=== PATIENT | female | born 1960 | race African-American/Black ===

== ENCOUNTER 2018-03-06 05:52 | Inpatient (IN) | payer OTHER ==
[~2018-03-06] VITALS: Ht 165.1 cm; Wt 97.1 kg
[2018-03-06] VITALS (18 sets, daily range): BP systolic 122–146; BP diastolic 62–81
[2018-03-06] MEDS ORDERED: Zemuron 50mg/5ml Inj IV ONE (06:08)
[2018-03-06] MEDS ORDERED: Dexamethasone 4mg/ml vial ONE (06:36)
[2018-03-06] MEDS ORDERED: Sodium Chloride 10ml vial INJ ONE (06:36)
[2018-03-06] MEDS ORDERED: Lidocaine 1% MPF 10mg/ml 5ml ONE (06:36)
[2018-03-06] MEDS ORDERED: NORCO 5-325 TA1 EACH ORAL (06:37)
[2018-03-06] MEDS ORDERED: ADVIL200 M2 ORAL (06:37)
[2018-03-06] MEDS ORDERED: Lidocaine 1% Plain 30 ml INJ ONE ×2 (06:46→09:20)
[2018-03-06] MEDS ORDERED: ceFAZolin sod 2 GM in D5W 110 ML IVPB ONE (06:59)
[2018-03-06] MEDS ORDERED: Propofol 1,000mg/ 100ml btl IV ONE (07:00)
[2018-03-06] MEDS ORDERED: NS Irrig 1000ml ONE (07:00)
[2018-03-06] MEDS ORDERED: Sterile Water Irrig 1000ml IRRIG ONE (07:00)
[2018-03-06] MEDS ORDERED: LR 1000ml ONE (07:00)
[2018-03-06] MEDS ORDERED: Gelfoam Size TOPIC ONE ×2 (07:06→08:33)
[2018-03-06] MEDS ORDERED: Thrombin 5000 units TOPIC ONE ×3 (07:06→08:32)
[2018-03-06] MEDS ORDERED: Vancomycin 1gm inj IVPB ONE (07:06)
[2018-03-06] MEDS ORDERED: Bacitracin 50000 Units Vial ONE (07:07)
[2018-03-06] MEDS ORDERED: Thrombin 5000 units spray kit TOPIC ONE (07:09)
--- NOTE | 2018-03-06 07:18 | Anethesia Preoperative Eval ---
Anesthesia Pre-op PMH/ROS General Date of Evaluation: Mar 06, 2018 Time of Evaluation: 07:01 Anesthesiologist: Saman ASA Score: ASA 2 Mallampati Score Class I : Soft palate, uvula, fauces, pillars visible Class II: Soft palate, uvula, fauces visible Class III: Soft palate, base of uvula visible Class IV: Only hard plate visible Mallampati Classification: Class II Surgeon: Cheryl Diagnosis: Neck Pain Surgical Procedure: C5-6 ADR, C6-7 ACDF Anesthesia History: none Family History: no anesthesia problems Allergies: Coded Allergies: No Known Allergies (Unverified , 03/06/18) Medications: see eMAR Past Medical History Cardiovascular: Reports: HTN Other: obesity - BMI 37 PSxH Narrative: C/S Anesthesia Pre-op Phys. Exam Physician Exam Last Vital Signs Date Time Temp Pulse Resp B/P (MAP) Pulse Ox O2 Delivery O2 Flow Rate FiO2 03/06/18 06:35 97.3 60 18 128/66 (86) 100 97.3 03/06/18 06:19 Room Air Constitutional: NAD Neurologic: CN 2-12 intact Cardiovascular: RRR Respiratory: CTA Gastrointestinal: S/NT/ND Airway Exam Mallampati Score: Class II MO: limited ROM: limited Teeth: intact Anesthesia Pre-op A/P Risk Assessment & Plan Assessment: ASA 3 Plan: GA, SED, GlideScope Status Change Before Surgery: No Pre-Antibiotics Dru Grams Ancef IV Given Within 1 Hr of Incision: Yes Time Given: 07:16 Santosh Davison MD Mar 06, 2018 07:18
--- NOTE | 2018-03-06 07:20 | Pre-Procedure Note/Attestation ---
Pre-Procedure Note/Attestation Complete Prior to Procedure Planned Procedure: not applicable Procedure Narrative: C56 Artificial disc replacement and C67 anterior cervical discectomy and fusion Indications for Procedure Pre-Operative Diagnosis: Herniation c56 and 67 and radiculopathy Attestation I attest that I discussed the nature of the procedure; its benefits; risks and complications; and alternatives (and the risks and benefits of such alternatives ), prior to the procedure, with the patient (or the patient's legal patient portal representative). I attest that, if there was a reasonable possibility of needing a blood transfusion, the patient (or the patient's legal patient portal representative) was given the [facility] standardized written summary, pursuant to the [employer] Juan Ramon Blood Safety Act ([place] Health and Safety Code # 1645, as amended). I attest that I re-evaluated the patient just prior to the surgery and that there has been no change in the patient's H&P, except as documented below: Tony Luna MD Mar 06, 2018 07:20
--- NOTE | 2018-03-06 07:21 | Brief Operative Note ---
Immediate Post Operative Note Operative Note Chief Complaint: Neck pain and radiculpathy Pre-op Diagnosis: Herniation c56 and 67 and radiculopathy Procedure: C56 Artificial disc replacement and C67 anterior cervical discectomy and fusion Post-op Diagnosis: same as pre-op Findings: consistent w/pre-op dx studies Surgeon: Cheryl Buncher Hand: Halie Anesthesiologist: Saman Anesthesia: general Specimen: none Complications: none Condition: stable Fluids: IVF Estimated Blood Loss: minimal Drains: none Implant(s) used?: Yes - Prodisc sz 5, nuvasive interlock c osteocell 1cc Tony Luna MD Mar 06, 2018 07:21
[2018-03-06] MEDS ORDERED: fentaNYL 100 mcg/2 mL IV PRN (08:01)
[2018-03-06] MEDS ORDERED: Norco 5mg/325mg tab ORAL PRN ×2 (08:01→12:19)
[2018-03-06] MEDS ORDERED: Hydromorphone 0.5mg/0.5ml inj IVP PRN (08:01)
[2018-03-06] MEDS ORDERED: Ketorolac 30mg Inj IV PRN ×2 (08:02→08:03)
[2018-03-06] MEDS ORDERED: HYDROcodone/Acetamin 7.5/325 tab ORAL PRN ×3 (08:02→12:19)
[2018-03-06] MEDS ORDERED: oxyCODONE HCL/Acetaminophen 5/325mg ORAL PRN (08:03)
[2018-03-06] MEDS ORDERED: LORazepam Inj 2mg/ml 1ml IV PRN (08:03)
[2018-03-06] MEDS ORDERED: Midazolam 2mg/2ml Inj IVP PRN (08:03)
[2018-03-06] MEDS ORDERED: Metoclopramide 10mg/2ml Inj IVP PRN ×3 (08:04→12:32)
[2018-03-06] MEDS ORDERED: Labetalol 5mg/ml 20ml vial IV PRN (08:06)
[2018-03-06] MEDS ORDERED: fentaNYL 100 mcg/2 mL IV ONE (08:06)
[2018-03-06] MEDS ORDERED: LR 1000ml 1,000 ML IVLG SCH (08:07)
[2018-03-06] MEDS ORDERED: DiphenhydrAMINE 50mg/ml Inj IVP PRN (08:07)
[2018-03-06] MEDS ORDERED: Atropine Sulfate 0.4mg/ml inj IVP PRN (08:07)
--- NOTE | 2018-03-06 08:07 | Immediate Post-Op Evaluation ---
Immediate Post-Op Evalulation Immediate Post-Op Evalulation Procedure: C5-6 ADR, C6-7 ACDF Date of Evaluation: Mar 06, 2018 Time of Evaluation: 10:22 IV Fluids: 1000 LR Blood Products: 0 Estimated Blood Loss: 25 Urinary Output: 700 Blood Pressure Systolic: 122 Blood Pressure Diastolic: 62 Pulse Rate: 74 Respiratory Rate: 16 O2 Sat by Pulse Oximetry: 96 Temperature (Fahrenheit): 97.9 Pain Score (1-10): 3 Nausea: No Vomiting: No Complications 0 Hydration Status: adequate Dru Grams Ancef IV Given Within 1 Hr of Incision: Yes Time Given: 07:16 Santosh Davison MD Mar 06, 2018 08:07
[2018-03-06] MEDS ORDERED: Acetaminophen (Non formulary) 100 ML IV ONE (08:08)
[2018-03-06] MEDS ORDERED: Meperidine 50mg/ml Inj(FOR RIGORS ONLY) IVP PRN (08:08)
[2018-03-06] MEDS ORDERED: NS Irrig 1000ml IRRIG ONE (08:42)
[2018-03-06] MEDS ORDERED: Glycopyrrolate 0.2mg/ml 1ml Vial ONE (09:32)
[2018-03-06] MEDS ORDERED: Neostigmine 1mg/ml 10ml Inj ONE (09:32)
[2018-03-06] MEDS ORDERED: Milk of Magnesia 30ml Ud ORAL PRN (12:15)
[2018-03-06] MEDS ORDERED: Chloraseptic Spray 20mL Bottle ORAL PRN (12:16)
[2018-03-06] MEDS ORDERED: Naloxone 0.4mg/ml Inj IVP PRN (12:17)
[2018-03-06] MEDS ORDERED: HYDROmorphone 1mg/ml Carpuject IVP PRN (12:20)
[2018-03-06] MEDS ORDERED: Morphine Sulfate 4mg/ml Inj (IV USE ONLY) IV PRN (12:32)
[2018-03-06] MEDS ORDERED: Morphine Sulfate 2mg/ml Inj IV PRN (12:33)
[2018-03-06] MEDS: Dexamethasone 4mg/ml vial IVP SCH ×3 (12:45→23:03)
[2018-03-06] MEDS: Morphine Sulfate 4mg/ml Inj (IV USE ONLY) IV PRN ×3 (12:46→21:29)
[2018-03-06] MEDS: NS w/KCl 20mEq 1,000 ML IV SCH ×2 (13:24→22:47)
--- NOTE | 2018-03-06 15:11 | Diagnostic Imaging Report ---
Indication: Neck Pain Findings: 3 fluoroscopic views of the cervical spine were obtained. Images showing localization followed by discectomy this replacement at C5-6 and anterior fusion at C6-7. IMPRESSION: Intraoperative imaging
[2018-03-06] MEDS: ceFAZolin sod 1 GM in D5W 55 ML IV SCH ×2 (15:15→22:48)
--- NOTE | 2018-03-06 17:09 | General Progress Note ---
Assessment/Plan Assessment/Plan C56 Artificial disc replacement and C67 anterior cervical discectomy and fusion Herniation c56 and 67 and radiculopathy cervical disc disease PLAN 1. incentive spirometry 2. SCD 3. PT evaluation and therapy 4. Hydration 5. Pain management 6. discharge once stable with outpatient follow up Subjective Allergies: Coded Allergies: No Known Allergies (Unverified , 03/06/18) Subjective post op stable Objective Last 24 Hour Vital Signs Date Time Temp Pulse Resp B/P (MAP) Pulse Ox O2 Delivery O2 Flow Rate FiO2 03/06/18 16:00 97.7 72 18 134/81 (98) 96 97.7 03/06/18 14:15 98.0 73 18 133/75 (94) 96 98.0 03/06/18 13:15 98.0 73 18 133/76 (95) 96 98.0 03/06/18 12:15 97.8 77 18 132/70 (90) 93 97.8 03/06/18 11:45 97.4 74 18 129/69 (89) 97 97.4 03/06/18 11:25 98.0 74 19 130/74 95 Nasal Cannula 4 98.0 03/06/18 11:10 71 20 129/63 98 Nasal Cannula 4 03/06/18 11:10 97.8 03/06/18 11:10 97.8 03/06/18 11:05 74 17 141/70 99 Nasal Cannula 4 03/06/18 10:55 74 17 136/75 94 Simple Mask 8 03/06/18 10:52 97.9 03/06/18 10:50 72 17 136/74 96 Simple Mask 8 03/06/18 10:35 78 18 146/73 93 Simple Mask 8 03/06/18 10:34 97.9 03/06/18 10:30 70 15 132/64 98 Simple Mask 8 03/06/18 10:20 75 17 133/67 96 Simple Mask 10 03/06/18 10:15 69 14 145/70 92 Simple Mask 10 03/06/18 10:11 97.9 72 16 122/62 92 Simple Mask 10 97.9 03/06/18 10:11 208.2 74 16 96 03/06/18 06:35 97.3 60 18 128/66 (86) 100 97.3 03/06/18 06:19 Room Air Intake and Output 03/05/18 03/06/18 19:00 07:00 # Voids 1 Height (Feet): 5 Height (Inches): 5.00 Weight (Pounds): 214 Objective WDWN NAD clear breath sounds bilaterally without rhonchi or wheeze [id number] without MRG NABS nontender no HSM no CCE nonfocal Gurinder Goodwin MD Mar 06, 2018 17:09
[2018-03-06] MEDS: Docusate 100mg cap ORAL SCH ×2 (17:49→18:00)
--- NOTE | 2018-03-06 23:00 | Operative Note - Dictated ---
DATE OF OPERATION: 03/06/2018 SURGEON: Tony Luna MD, Orthopedic Spine Surgeon. SKY CAP: Sam Ambrose M.D. ANESTHESIOLOGIST: Santosh Davison M.D. PREOPERATIVE DIAGNOSES: 1. Intractable neck pain. 2. Radiculopathy. 3. Herniation, C5-C6 and C6-C7. 4. Neural foraminal stenosis, C5-C6 and C6-C7. 5. Stenosis. POSTOPERATIVE DIAGNOSES: 1. Intractable neck pain. 2. Radiculopathy. 3. Herniation, C5-C6 and C6-C7. 4. Neural foraminal stenosis, C5-C6 and C6-C7. 5. Stenosis. PROCEDURE PERFORMED: 1. Anterior cervical discectomy and artificial disc replacement of C5-C6 using a Synthes ProDisc C size 5 height. 2. Anterior cervical discectomy and fusion of C6-C7 using NuVasive Interlock C size 6 PEEK cage and three 13 mm screws Osteocel allograft bone and local autograft. 3. Use of intraoperative microscope. 4. Motor-evoked potential monitoring. 5. Somatosensory-evoked potential monitoring. 6. Supervision and interpretation of fluoroscopy. COMPLICATIONS: None. ANESTHESIA: General. ESTIMATED BLOOD LOSS: Less than 100 mL. INDICATIONS FOR SURGERY: This patient is a 57-year-old female who has history of diagnoses as listed above. As of result of this, the patient sustained intractable neck pain, radiculopathy, herniation of C5-C6 and C6-C7, neural foraminal stenosis of C5-C6 and C6-C7, and stenosis. We tried a course of conservative management, but despite this course, there was still a significant component of persistent, recalcitrant neck pain and arm pain. The MRI demonstrated significant neural foraminal compromise secondary to disc herniations at C5-C6 and C6-C7. We had a long discussion with Reyna regarding the risks and benefits of surgery. Our discussion included but was not limited to nonoperative management, chiropractic management, another epidural steroid injection as well as definitive management in the form of surgery. We recommended an artificial disc replacement of cervical C5-C6 and anterior cervical discectomy and fusion of cervical C6-C7 as final definitive management. We reviewed the risks and benefits of surgery with the patient. Our discussion included a comprehensive review of the clinical issues and the nature of the clinical decision. We reviewed the alternatives, including doing nothing. The patient elected to proceed accordingly with an artificial disc replacement of cervical C5-C6 and anterior cervical discectomy and fusion of cervical C6-C7. We had a long discussion regarding the risks, alternatives, and benefits of surgery. Our description of the risks included a discussion in person as well as a signed consent which detailed all pertinent risks from the procedure itself. Briefly, our discussion included but was not limited to infection, bleeding, pseudarthrosis, spinal cord injury, neurovascular injury, dural tear, CSF leak, neuropathy, paralysis, permanent weakness/drop foot/drop arm, paresthesias, blindness, palsy, and weakness. The patient understood there may be a need for a revision surgery or additional procedures. Approach-related complications including dysphonia, dysphagia, blindness, permanent vocal cord and neural injury, hematoma, swallowing and breathing difficulty. Medical complications were reviewed including liver, kidney, shock, cardiopulmonary failure, anesthesia complications including , swelling, damage to the musculature, larynx/voice injury or loss, esophagus/throat, trachea, blood vessels and muscles/muscular sprain and lungs/pneumothorax during this surgical procedure; injury to deeper structures may be temporary or permanent. After this review of risks, the patient understood these and elected to proceed. A written and verbal consent was given. We discussed the pros and cons of all the alternatives. We discussed the uncertainties associated with the decision. Afterwards I assessed the patient's understanding and explored their preferences. All questions were answered and no guarantees were given. Medical clearance was obtained prior to surgery. INTRAOPERATIVE FINDINGS: A discrete disc herniation which was found posterior to an obvious tear in the posterior longitudinal ligament at C5-C6 and C6-C7. This was causing a considerable amount of neural foraminal stenosis with significant encroachment on the neural foramina and spinal cord, which was being impinged as a result of this pressure. Upon inspection of the interspace at cervical C5-C6 and C6-C7, I noticed a rent in the posterior longitudinal ligament or PLL. Upon inspection of this tear, once it was mobilized with Kerrison rongeurs, there was a disc fragment and herniation causing encroachment on the neural foramina and spinal cord posterior to the PLL. This was resected as well which caused some noted relief on the underlying neural elements. DESCRIPTION OF PROCEDURE: Under the benefit of general endotracheal anesthesia and with the assistance of the entire operative team, the patient was moved from the [facility] onto the operative table in the supine position. The head was secured and carefully positioned appropriately. Bilateral arms were secured with GelPads and foam and all bony prominences were padded. For the bilateral lower extremities, SCD and CYNDEE hose were placed for DVT prophylaxis. A surgical timeout was called which corroborated our planned procedure of an artificial disc replacement of cervical C5-C6 and anterior cervical discectomy and fusion of cervical C6-C7. Preoperative antibiotics were administered within 30 minutes of the incision for antibiotic prophylaxis. Using lateral fluoroscopic radiography, the operative levels were delineated. Next, the wound was prepped and draped with chlorhexidine and sterile drapes. An incision was based on lateral fluoroscopy and we centered our incision at the C5-C6 and C6-C7 interspace and next using a standard Conley-Turner anterior-based approach, the incision was taken down through the skin and subcutaneous tissues until the vertebral bodies and their corresponding disc spaces were visualized. A needle was placed into the interspace to confirm placement of the operative interspace and we performed the remainder of procedure under microscopic visualization. Next, using a bipolar and Bovie cautery to ensure meticulous hemostasis, the longus colli was mobilized bilaterally and retractors were placed deep to the longus colli bilaterally to address retraction. Next, we turned our attention to the radical anterior discectomy. This was initially performed at C5-C6 first by using a #15 blade scalpel followed by narrow pituitaries and a Microsect 5-B curette was used to denude the endplate of all cartilaginous tissue. Next, using a Barafonas Cristiano AM8 drill bit, the vertebral endplates were denuded of all residual cartilage in a setv-tq-nefp and fdmlu-hu-mwzmc fashion, and ultimately the posterior uncinate joints bilaterally and posterior osteophytic lips and margins were carefully denuded until clear visualization of the posterior longitudinal ligament was possible. An endplate preparation was performed in the exact same fashion using an intervertebral project safety manager, sequential distraction was obtained throughout the disc space. We saw a tear/rent in the PLL and this was carefully mobilized and dissected using a Microsect 1-B curette until we visualized a discrete disc herniation with compression of the spinal cord as well as neural foramina which was right-sided. This neural foraminal compression was carefully resected using a Kerrison-1 and Kerrison-2 rongeurs until complete decompression of the spinal cord was visualized and complete decompression of the neural foramina and nerve root therein as well as the axilla and lateral margin of the nerve root was visualized and subsequently completely decompressed. The family was notified at one-hour intervals throughout the procedure to provide for consistent updates. We next turned our attention towards trialing our implant within the disc space. We initially tried size 5 and this ProDisc Cervical spacer fit well in regard to depth and width. This implant was opened and prepared. Next under direct visualization, I confirmed excellent fit in respect to the anterior and posterior vertebral bodies, the uncinate joints, and in regard to toggle. Once satisfied with this placement on serial AP and lateral fluoroscopy, I turned my attention towards cutting our roberto. These were cut in the bones using a reciprocating drill and afterwards all free fragments of bone were irrigated. Next, FloSeal was placed into the interspace, then removed in its entirety and the implant was inserted using fluoroscopic guidance. Next, the Synthes ProDisc C size 5 ADR was then carefully advanced and secured into the intervertebral space under direct visualization and with supervision of AP and lateral fluoroscopic views. I next turned my attention towards the radical anterior discectomy. This was then performed at cervical C6-C7 first by using a #15 blade scalpel followed by narrow pituitaries and a Microsect 5-B curette was used to denude the endplate of all cartilaginous tissue. Next using a [employer] AM8 drill bit, the vertebral endplates were denuded of all cartilaginous tissue in a trtu-as-skxm and elfeh-rd-dwxiw fashion, and ultimately the posterior uncinate joints bilaterally and posterior osteophytic lips and margins were carefully denuded until wide and thorough visualization of the posterior longitudinal ligament was possible. At this level, the endplate preparation was performed in the exact same fashion using an intervertebral project safety manager, sequential distraction was obtained throughout the disc space. We saw a tear/rent in the PLL and this was carefully mobilized and dissected using a Microsect 1-B curette until we visualized an obvious disc herniation with compression of the spinal cord as well as neural foramina which was right sided. This neural foraminal compression was carefully resected using a Kerrison-1 and Kerrison-2 rongeurs until complete decompression of the spinal cord was visualized and complete decompression of the neural foramina and nerve root therein as well as the axilla and lateral margin of the nerve root was visualized and subsequently completely decompressed. We next turned our attention towards trialing our implant within the disc space. We initially tried size 5 and afterwards size 6 trial from the NuVasive Interlock system at each level, which appeared to be appropriate under AP and lateral fluoroscopy as well as in terms of its height, depth, width, and lack of toggle. The PEEK (polyetheretherketone) interbody cages were then both packed with allograft bone from Osteocel and local autograft bone matrix. Next, these were then carefully advanced and secured into their intervertebral spaces under direct visualization and with supervision of AP and lateral fluoroscopic views. We next turned our attention towards plating. Plating was performed at each level with the NuVasive Interlock-C plating system. A total of three screws, size 13 mm in length were inserted and confirmed under AP and lateral fluoroscopy and confirmed to be in excellent position. After a finger sweep, we confirmed removal of all sponges. The retractor was removed and we next turned our attention to meticulous hemostasis with FloSeal and bipolar cautery. After the sponge and needle count was again found to be correct with our second count, we next turned our attention to closure. The wound was again copiously irrigated with antibiotic-impregnated saline Closure consisted of 4-0 clear nylon for the platysma, and 5-0 clear nylon for the superficial skin. Final skin closure and dressings consisted of Dermabond. Prior to final closure, a final radiograph was obtained which demonstrated the hardware was intact with excellent position throughout. The patient tolerated the procedure well. The patient was carefully extubated after the conclusion of surgery. We discussed the findings of the surgery with the family upon completion of the case. At this point, the patient was transferred to the spine floor for further observation. Tony Luna M.D. DR: Monica JOB#: [id number] CC: ROSETTA
[2018-03-07] VITALS: BP 131/66
[2018-03-07 04:00] VITALS: BP 136/83
[2018-03-07] MEDS: Dexamethasone 4mg/ml vial IVP SCH (05:31)
[2018-03-07] MEDS: Morphine Sulfate 4mg/ml Inj (IV USE ONLY) IV PRN (05:34)
[2018-03-07] MEDS: ceFAZolin sod 1 GM in D5W 55 ML IV SCH (06:54)
[2018-03-07 08:00] VITALS: BP 155/80
--- NOTE | 2018-03-07 08:10 | General Progress Note ---
Assessment/Plan Assessment/Plan C56 Artificial disc replacement and C67 anterior cervical discectomy and fusion Herniation c56 and 67 and radiculopathy cervical disc disease PLAN 1. incentive spirometry 2. SCD 3. PT evaluation and therapy 4. Hydration 5. Pain management 6. discharge if cleared by spine impression, plan, and exam edited and reviewed in detail care discussed with RN Subjective Allergies: Coded Allergies: No Known Allergies (Unverified , 03/06/18) Subjective post op stable and tolerating po Objective Last 24 Hour Vital Signs Date Time Temp Pulse Resp B/P (MAP) Pulse Ox O2 Delivery O2 Flow Rate FiO2 03/07/18 04:00 98.4 66 18 136/83 (100) 96 98.4 03/07/18 00:00 99.0 74 18 131/66 (87) 97 99.0 03/06/18 21:00 Room Air 03/06/18 20:00 99.0 76 18 143/79 (100) 97 99.0 03/06/18 16:00 97.7 72 18 134/81 (98) 96 97.7 03/06/18 14:15 98.0 73 18 133/75 (94) 96 98.0 03/06/18 13:15 98.0 73 18 133/76 (95) 96 98.0 03/06/18 12:15 97.8 77 18 132/70 (90) 93 97.8 03/06/18 11:45 97.4 74 18 129/69 (89) 97 97.4 03/06/18 11:25 98.0 74 19 130/74 95 Nasal Cannula 4 98.0 03/06/18 11:10 71 20 129/63 98 Nasal Cannula 4 03/06/18 11:10 97.8 03/06/18 11:10 97.8 03/06/18 11:05 74 17 141/70 99 Nasal Cannula 4 03/06/18 10:55 74 17 136/75 94 Simple Mask 8 03/06/18 10:52 97.9 03/06/18 10:50 72 17 136/74 96 Simple Mask 8 03/06/18 10:35 78 18 146/73 93 Simple Mask 8 03/06/18 10:34 97.9 03/06/18 10:30 70 15 132/64 98 Simple Mask 8 03/06/18 10:20 75 17 133/67 96 Simple Mask 10 03/06/18 10:15 69 14 145/70 92 Simple Mask 10 03/06/18 10:11 97.9 72 16 122/62 92 Simple Mask 10 97.9 03/06/18 10:11 208.2 74 16 96 Intake and Output 03/06/18 03/07/18 19:00 07:00 Intake Total 1970 ml 1500 ml Output Total 710 ml Balance 1260 ml 1500 ml Intake Oral 470 ml 500 ml IV Total 1500 ml 1000 ml Output Urine Total 700 ml Estimated Blood Loss 10 ml # Voids 3 8 Height (Feet): 5 Height (Inches): 5.00 Weight (Pounds): 214 Objective WDWN NAD clear breath sounds bilaterally without rhonchi or wheeze [id number] without MRG NABS nontender no HSM no CCE nonfocal Gurinder Goodwin MD Mar 07, 2018 08:10
[2018-03-07] MEDS: Docusate 100mg cap ORAL SCH (09:00)
[2018-03-07] MEDS: NS w/KCl 20mEq 1,000 ML IV SCH (09:30)
[2018-03-07 10:10] VITALS: BP 136/83
--- NOTE | 2018-03-07 10:10 | 48 Hour Post Anesthesia Eval ---
Post Anesthesia Evaluation Procedure: C5-6 ADR, C6-7 ACDF Date of Evaluation: Mar 07, 2018 Time of Evaluation: 06:40 Blood Pressure Systolic: 136 0: 83 Pulse Rate: 66 Respiratory Rate: 18 Temperature (Fahrenheit): 98.4 O2 Sat by Pulse Oximetry: 96 Airway: patent Nausea: No Vomiting: No Pain Intensity: 2 Hydration Status: adequate Cardiopulmonary Status: at baseline Mental Status/LOC: patient returned to baseline Post-Anesthesia Complications: 0 Follow-up care needed: N/A - further care as per [id number] team Suzette Elise MD Mar 07, 2018 10:10
--- NOTE | 2018-03-11 14:02 | Discharge Summary ---
Discharge Summary Hospital Course Date of Admission Mar 06, 2018 at 05:52 Date of Discharge Mar 07, 2018 at 12:45 Admitting Diagnosis Herniated nucleus pulposus, neck pain, radiculopathy Reason for Hospitalization: elective surgery GREGORIO Paez is a 57 year old female who was admitted on Mar 06, 2018 at 05:52 for Herniated Nucleus Pulposus,Pain,Radiculopathy. Patient was admitted for elective surgery. Consultations dr Goodwin Procedures s/p 03/06/[address] Luna 1. Anterior cervical discectomy and artificial disc replacement of C5-C6 using a Synthes ProDisc C size 5 height. 2. Anterior cervical discectomy and fusion of C6-C7 using NuVasive Interlock C size 6 PEEK cage and three 13 mm screws Osteocel allograft bone and local autograft. 3. Use of intraoperative microscope. 4. Motor-evoked potential monitoring. 5. Somatosensory-evoked potential monitoring. 6. Supervision and interpretation of fluoroscopy. Hospital Course status post surgery course of recovery uneventful initially IV fluids s/p perioperative antibiotics neurovascular status closely monitored, stable incision clean dry and intact pain management addressed hemodynamically stable ambulated with PT /OT fall precautions maintained; safe for ambulation started on Decadron tolerated diet , IV fluids discontinued antiemetics were on board as needed voided freely bowel regimen instituted patient was stable for discharge discharge instructions provided follow up with surgeon as advised FINAL DIAGNOSES: Herniation C 5-6 and C 6-7 and radiculopathy Cervical disc disease s/p C5-6 Artificial disc replacement and C6-7 anterior cervical discectomy and fusion Discharge Condition Upon Discharge: stable Discharge Disposition Patient was discharged to Home (01) Discharge Instructions Discharge Instructions Special Instructions I have been assigned to complete a D/C Summary on this account. I was not involved in the patient management Kelsey Leslie NP Mar 11, 2018 14:02
== END 2018-03-07 12:45 | disposition home or self-care (01) | DRG 473 ==
LOC: SDSOVERFLO 05:52 → 3E 11:20
PROC: 0RT30ZZ Resection of Cervical Vertebral Disc, Open Approach (ICD-10-PCS; principal; 2018-03-06 07:00)
PROC: 0RR30JZ Replacement of Cervical Vertebral Disc with Synthetic Substitute, Open Approach (ICD-10-PCS; principal; 2018-03-06 07:00)
PROC: 0RG10A0 Fusion of Cervical Vertebral Joint with Interbody Fusion Device, Anterior Approach, Anterior Column, Open Approach (ICD-10-PCS; principal; 2018-03-06 07:00)
PROC: 4A11X4G Monitoring of Peripheral Nervous Electrical Activity, Intraoperative, External Approach (ICD-10-PCS; principal; 2018-03-06 07:00)
DX: M50.122 Cervical disc disorder at C5-C6 level with radiculopathy (principal); M48.02 Spinal stenosis, cervical region; E66.9 Obesity, unspecified; R03.0 Elevated blood-pressure reading, without diagnosis of hypertension; R82.998 Other abnormal findings in urine
CPT/HCPCS: 36415; 72040; 76001; 86850; 86900; 86901; 87081; 94003; 94150; J2405; J2710; J2765